=== PATIENT | female | born 2000 | race Caucasian/White ===

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

== ENCOUNTER 2021-05-27 18:56 | Emergency (ER) | payer BC, SELFPAY ==
[2021-05-27] VITALS (15 sets, daily range): BP systolic 92–128; BP diastolic 58–74; PULSE 54–80; RESP 10–20; TEMP 37.1; O2SAT 92–100
--- NOTE | 2021-05-27 19:29 | ECG_ITS ---
Measurements Intervals [place] Rate: 75 P: 58 IA: 130 QRS: 51 QRSD: 85 T: 43 QT: 382 QTc: 429 Interpretive Statements SINUS RHYTHM WITH SINUS ARRHYTHMIA BASELINE ARTIFACT- II, III, AVR, AVF, V3-V6 NORMAL ECG Electronically Signed On 05-27-2021 20:57:28 SECURITY BUSINESS ANALYST by Mat Chavez D.O.
[2021-05-27 20:39] LABS: Basophils Percent Auto 0.2 % (0.2-1.2); Eosinophils Absolute Auto 0.1 K/mm3 (0-0.3); Eosinophils Percent Auto 0.6 % (0-4.4); Hematocrit 41.1 % (37.0-47.0); Hemoglobin 13.3 g/dL (12.0-15.0); Immature Granulocyte Absolute 0.02 K/mm3 (0.00-0.031); Immature Granulocyte Percent A 0.2 % (0-0.5); Lymphocytes Absolute Auto 1.66 K/mm3 (0.9-3.2); Lymphocytes Percent Auto 19.2 % (18.3-44.2); Mean Corpuscular HGB Conc 32.4 g/dl (32-36); Mean Corpuscular Hemoglobin 29.6 pg (26-34); Mean Corpuscular Volume 91.3 fl (80-100); Mean Platelet Volume 10.4 fl (7.4-10.4); Monocytes Absolute Auto 0.6 K/mm3 (0.1-0.6); Monocytes Percent Auto 6.6 % (2.6-8.5); Neutrophils Absolute Auto 6.3 K/mm3 (1.3-6.7); Neutrophils Percent Auto 73.2 % (45.5-73.1); Platelet Count Result 303 k/mm3 (150-375); Red Cell Distribution Width 14.2 % (11.5-14.5); White Blood Count 8.7 K/mm3 (4.5-10.0)
[2021-05-27 20:48] LABS: Alanine Aminotransferase 11 U/L (4-35); Albumin Level 3.5 g/dL (3.7-5.6); Alkaline Phosphatase 62 U/L (45-116); Anion Gap 3 mmol/L (8-16); Aspartate Amino Transferase 19 U/L (14-36); Bilirubin,Total 0.7 mg/dL (0.2-1.3); Blood Urea Nitrogen 4 mg/dL (8-21); Calcium 7.5 mg/dL (8.9-10.7); Carbon Dioxide 25 mmol/L (22-30); Chloride 112 mmol/L (98-107); Estimated CRCL calculation 134 ml/min; Estimated Glomerular Filt Rate > 60; Glucose 82 mg/dL (65-110); Potassium 3.7 mmol/L (3.4-5.0); Sodium 140 mmol/L (134-143)
[2021-05-27] MEDS: SODIUM CHLORIDE 0.9% IV 1,000 ML 999 ML IV CONT (20:49)
--- NOTE | 2021-05-27 20:54 | ED.DIZZY ---
HPI - Dizziness General Chief Complaint: Syncope <Mili Francisco APRN - Last Filed: 05/28/21 00:19> Stated Complaint: syncope <Mili Francisco APRN - Last Filed: 05/28/21 00:19> Time Seen by Provider: 05/27/21 19:29 <Mili Francisco APRN - Last Filed: 05/28/21 00:19> Source: patient <Mili Francisco APRN - Last Filed: 05/28/21 00:19> Mode of arrival: EMS <Mili Francisco APRN - Last Filed: 05/28/21 00:19> Limitations: no limitations <Mili Francisco SUPERINTENDENT JOB - Last Filed: 05/28/21 00:19> History of Present Illness HPI Narrative: 20-year-old female presents today with complaints of syncope. 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 Patient states a bystander was an RN and said she was out for about a minute. Patient denies nausea, vomiting, diarrhea, chest pain, shortness of breath, , or sick contacts. Patient states she has a history of similar episodes in the past and it has been worked up in the past. Patient states she was eating and drinking fine today. <Mili Francisco APRN - Last Filed: 05/28/21 00:19> Related Data Home Medications: Home Medications Medication Instructions Recorded Confirmed sertraline 50 mg PO DAILY 05/11/20 <Mili Francisco APRN - Last Filed: 05/28/21 00:19> Allergies/Adverse Reactions: Allergies Allergy/AdvReac Type Severity Reaction Status Date / Time No Known Allergies Allergy Verified 05/11/20 21:35 <Mili Francisco SUPERINTENDENT JOB - Last Filed: 05/28/21 00:19> Review of Systems Review of Systems: CONSTITUTIONAL: Denies fever, chills, or sweats. EYES: Denies visual changes, redness, or discharge. ENT: Denies rhinorrhea, congestion, sore throat, or otalgia. CARDIOVASCULAR: Denies chest pain, palpitations, or edema. RESPIRATORY: Denies cough or dyspnea. GASTROINTESTINAL: Denies abdominal pain, nausea, vomiting, or diarrhea. GENITOURINARY: Denies dysuria or hematuria. SKIN: Denies rash or itching. MUSCULOSKELETAL: Denies back pain, joint pain, or myalgia. NEUROLOGIC: Positive for syncopal episode with LOC about 1 minute. Denies headache, trauma, numbness, dizziness, or weakness. PSYCHIATRIC: Denies anxiety or depression. <Mili Francisco APRN - Last Filed: 05/28/21 00:19> Exam Narrative: GENERAL: Well-appearing, well-nourished, and in no acute distress. HEAD: Normocephalic, atraumatic. EYES: PERRLA and EOMI. ENT: Nares clear, no rhinorrhea or epistaxis. Mucous membranes moist. Oropharynx without tonsillar hypertrophy exudate or other lesions. Bilateral TMs pearly foreman nonbulging NECK: Supple. No adenopathy or masses. No carotid bruits or JVD CHEST: Clear to auscultation. No respiratory distress. No wheezes rales or rhonchi HEART: Regular rate and rhythm. No murmur heard. Normal peripheral pulses. ABDOMEN: Soft, nontender, nondistended, normal active bowel sounds. EXTREMITIES: Normal range of motion. No edema. SKIN: Warm, dry, no rash. NEURO: No focal deficits. Alert and oriented x3. PSYCH: Normal mood and affect. <Mili Francisco APRN - Last Filed: 05/28/21 00:19> Course Course Emergency Course: Patient currently without complaints. Will do labs, ekg, and check urine. <Mili Francisco APRN - Last Filed: 05/28/21 00:19> CHANNELING MACHINE RUNNER/PA Physician Supervision For this patient encounter, I reviewed the CHANNELING MACHINE RUNNER or PA documentation, treatment plan, and medical decision making <Keith Bone MD - Last Filed: 05/28/21 11:56> Vital Signs Vital signs: Vital Signs Temperature 98.8 F 05/27/21 18:59 Pulse Rate 68 05/27/21 18:59 Respiratory Rate 18 05/27/21 18:59 Blood Pressure 125/74 05/27/21 18:59 Pulse Oximetry 100 05/27/21 18:59 Temperature 98.8 F 05/27/21 18:59 Pulse Rate 72 05/27/21 21:50 Respiratory Rate 16 05/27/21 21:50 Blood Pressure 116/71 05/27/21 21:50 Pulse Oximetry 99 05/27/21 21:50 <Mili Cueva
[2021-05-27 20:57] LABS: Add Urine Microscopic? YES; Appearance Urine Clear (Clear); Bacteria Urine Trace /hpf; Bilirubin Urine Negative (Negative); Blood Urine 3+ (Negative); Color Urine Yellow (Yellow); Glucose Urine UA Negative (Negative); Ketones Urine Negative (Negative); Leukocyte Esterase Ur Negative LEU/UL (Negative); Mucus Urine Few /lpf; Nitrate Urine Negative (Negative); Protein Urine Negative (Negative); Specific Grav Ur 1.006 (1.001-1.035); Squamous Epithelial Cell Urine Occasional /hpf (Few); Urobilinogen Urine Negative mg/dL (<2.0); WBC Urine 0-3 /hpf
== END 2021-05-27 21:50 | disposition home or self-care (01) ==
PROVIDERS: Emergency Provider Nurse Practitioner Family
DX: R55 Syncope and collapse (principal)
CPT/HCPCS: 36415; 80053; 81001; 81025; 85025; 93005; 96360; 99284; J7030